=== PATIENT | male | born 1990 | race Caucasian/White ===

== ENCOUNTER 2016-09-27 22:20 | Emergency (ER) | payer OTHER ==
[~2016-09-27] VITALS: Ht 172.7 cm; Wt 61.2 kg
[2016-09-27 22:23] VITALS: BP 133/79
--- NOTE | 2016-09-27 22:28 | NUR ---
Jannet hassan in [facility] - 09/27/16 at 2230 by GRANTO PT TAKEN TO OF Addendum: 09/27/16 at 2228 by GRANTO Yina hassan in [facility] - 09/27/16 at 2230 by GRANTO PT TAKEN TO OF2
--- NOTE | 2016-09-27 22:30 | NUR ---
PT TAKEN TO OF3
--- NOTE | 2016-09-27 22:33 | NUR ---
PATIENT PRESENTS TO ED WITH earache. DENIES N/V/D; SKIN IS PINK/WARM/DRY; AAOX4 WITH EVEN AND STEADY GAIT; LUNGS CLEAR BL; HR EVEN AND REGULAR; PT DENIES ANY FEVER, CP, SOB, OR COUGH AT THIS TIME; PATIENT STATES PAIN OF 9/10 AT THIS TIME; VSS; PATIENT POSITIONED FOR COMFORT; HOB ELEVATED; BEDRAILS UP X2; BED DOWN. ER MD MADE AWARE OF PT STATUS.
--- NOTE | 2016-09-27 23:10 | NUR ---
Dr. Orozco evaluating patient
[2016-09-27] MEDS ORDERED: IBUPROFEN 800 MG TAB PO ONE (23:30)
[2016-09-27 23:42] VITALS: BP 127/82
--- NOTE | 2016-09-27 23:42 | NUR ---
Patient discharged with v/s stable. Written and verbal after care instructions given and explained. Patient alert, oriented and verbalized understanding of instructions. Ambulatory with steady gait. All questions addressed prior to discharge. ID band removed. Patient advised to follow up with PM FOR ENT REFERAL IN 2-3 DAYS OR RETURN TO ER IF S/S WORSEN. Rx of IBUPROFEN AND AURALGAN given. Patient educated on indication of medication including possible reaction and side effects. Opportunity to ask questions provided and answered.
== END 2016-09-27 23:42 | disposition home or self-care (01) ==
LOC: MED 22:20
DX: T70.0XXA Otitic barotrauma, initial encounter (principal); X58.XXXA Exposure to other specified factors, initial encounter; Y92.89 Other specified places as the place of occurrence of the external cause